=== PATIENT | female | born 1990 | race Caucasian/White ===

== ENCOUNTER 2017-04-17 19:20 | Emergency (ER) | payer OTHER ==
[~2017-04-17] VITALS: Ht 154.9 cm; Wt 70.0 kg
[~2017-04-17 19:20] MED LIST: EXPECTA PRENAT1 EACH PO; IBUPROFEN800 MG PO; NOHOMEMEDS; TRAMADOL HCL50 MG
[2017-04-17 20:10] LABS: HEMATOCRIT 40.1 % (36.0-46.0); MCH 31.8 PG (29.0-34.0); MCHC 33.7 G/DL (30.0-36.0); MCV 94.4 FL (83-99); PLATELET COUNT 404 K/uL (156-360); RBC DIS.WIDTH-CV 12.2 % (11.8-14.6); RBC DIS.WIDTH-SD 42.6 % (39-53); RED BLOOD COUNT 4.25 M/uL (3.80-5.20); WHITE BLOOD COUNT 13.6 K/uL (4.1-10.2)
[2017-04-17 20:22] LABS: CHLORIDE 103 mEq/L (99-109); POTASSIUM 3.3 mEq/L (3.7-5.4); SODIUM 138 mEq/L (136-147)
[2017-04-17 20:23] LABS: GLUCOSE 106 mg/dL (70-99)
[2017-04-17 20:25] LABS: ANION GAP 10 MEQ/L (2-14)
[2017-04-17 20:27] LABS: GFR ESTIMATE (CALCULATED) > 59 mL/min/
[2017-04-17 20:28] LABS: UREA NITROGEN (BUN) 5 mg/dL (9-23)
[2017-04-17 20:31] LABS: TROP-I INTERPRETATION NEGATIVE; TROPONIN-I < 0.01 ng/mL (0.0-0.30)
[2017-04-17] MEDS ORDERED: ZITHROMAX Z-PA250 MG PO (21:47)
[2017-04-17] MEDS ORDERED: PERCOCET 5/31 TABLET PO (21:47)
[2017-04-17 22:25] VITALS: BP 144/88
== END 2017-04-17 22:31 | disposition home or self-care (01) ==
LOC: EME 19:20
DX: S62.306A Unspecified fracture of fifth metacarpal bone, right hand, initial encounter for closed fracture (principal); J40 Bronchitis, not specified as acute or chronic; W22.09XA Striking against other stationary object, initial encounter
CPT/HCPCS: 71020; 73130; 80048; 84484; 85027; 99281; 99283; S0020

== ENCOUNTER 2017-10-11 18:32 | Emergency (ER) | payer OTHER ==
[~2017-10-11] VITALS: Ht 154.9 cm; Wt 68.2 kg
[~2017-10-11 18:32] MED LIST changes: +PERCOCET 5/31 TABLET PO; +ZITHROMAX Z-PA250 MG PO
[2017-10-11] MEDS ORDERED: TRAMADOL HCL50 MG PO (21:32)
[2017-10-11 21:46] VITALS: BP 138/86
== END 2017-10-11 21:48 | disposition home or self-care (01) ==
LOC: EME 18:32 → RME 18:32
DX: S93.402A Sprain of unspecified ligament of left ankle, initial encounter (principal); W10.9XXA Fall (on) (from) unspecified stairs and steps, initial encounter; F17.200 Nicotine dependence, unspecified, uncomplicated
CPT/HCPCS: 73610; 99281; 99284

== ENCOUNTER 2017-10-20 02:04 | Emergency (ER) | payer OTHER ==
[~2017-10-20] VITALS: Ht 154.9 cm; Wt 68.2 kg
[~2017-10-20 02:04] MED LIST changes: +TRAMADOL HCL50 MG PO
[2017-10-20 02:33] LABS: APPEARANCE CLEAR ((CLEAR)); BILIRUBIN NEGATIVE; BLOOD SMALL; COLOR STRAW ((YELLOW)); GLUCOSE (STRIP) NEGATIVE; KETONES NEGATIVE; LEUKOCYTES NEGATIVE; NITRITE NEGATIVE; PROTEIN (STRIP) NEGATIVE; SPECIFIC GRAVITY 1.002 (1.000-1.030); UROBILINOGEN 0.2 MG/DL (0.2-1.0)
[2017-10-20 02:35] LABS: HEMATOCRIT 44.1 % (36.0-46.0); HEMOGLOBIN 15.4 G/DL (11.9-15.5); MCH 32.3 PG (29.0-34.0); MCHC 34.9 G/DL (30.0-36.0); MCV 92.5 FL (83-99); PLATELET COUNT 362 K/uL (156-360); RBC DIS.WIDTH-CV 13.1 % (11.8-14.6); RBC DIS.WIDTH-SD 44.7 % (39-53); RED BLOOD COUNT 4.77 M/uL (3.80-5.20); WHITE BLOOD COUNT 10.2 K/uL (4.1-10.2)
[2017-10-20 02:36] LABS: BACTERIA NONE SEEN /HPF; EPITHELIAL CELLS NONE SEEN /HPF; MUCUS NONE SEEN /LPF; RED BLOOD CELLS 0-5 /HPF (0-5); UCUL ADDED? NO; WHITE BLOOD CELLS 0-5 /HPF (0-5)
[2017-10-20 02:44] LABS: ALBUMIN 4.7 g/dL (3.2-4.8); CHLORIDE 108 mEq/L (99-109); POTASSIUM 3.7 mEq/L (3.7-5.4); SODIUM 146 mEq/L (136-147)
[2017-10-20 02:47] LABS: GLUCOSE 104 mg/dL (70-99); TOTAL PROTEIN 8.4 g/dL (6.4-8.3)
[2017-10-20 02:48] LABS: TOTAL BILIRUBIN 0.3 mg/dL (0.0-1.0)
[2017-10-20 02:50] LABS: ALKALINE PHOSPHATASE 90 IU/L (3-129); CREATININE 0.8 mg/dL (0.6-1.3); GFR ESTIMATE (CALCULATED) > 59 mL/min/; SERUM ETHYL ALCOHOL 317 mg/dL
[2017-10-20 02:51] LABS: UREA NITROGEN (BUN) 9 mg/dL (9-23)
[2017-10-20 02:52] LABS: AST (GOT) 28 IU/L (2-34); DIRECT BILIRUBIN 0.1 mg/dL (0.0-0.3)
[2017-10-20 02:53] LABS: ALT (GPT) 32 IU/L (3-49)
[2017-10-20 02:54] LABS: LIPASE 40 U/L (1.0-51.0)
[2017-10-20 05:07] VITALS: BP 159/54
== END 2017-10-20 05:08 | disposition left against medical advice (07) ==
LOC: EME 02:04
PROVIDERS: Emergency Medicine
DX: S02.2XXA Fracture of nasal bones, initial encounter for closed fracture (principal); Y09 Assault by unspecified means; Y92.488 Other paved roadways as the place of occurrence of the external cause; F10.129 Alcohol abuse with intoxication, unspecified; Y90.8 Blood alcohol level of 240 mg/100 ml or more; Z53.21 Procedure and treatment not carried out due to patient leaving prior to being seen by health care provider; F32.9 Major depressive disorder, single episode, unspecified; F17.200 Nicotine dependence, unspecified, uncomplicated; Z87.19 Personal history of other diseases of the digestive system; Z91.030 Bee allergy status
CPT/HCPCS: 70450; 70486; 71046; 72125; 72170; 80048; 80076; 81003; 81025; 83690; 85027; G0480

== ENCOUNTER 2018-02-11 17:03 | Emergency (ER) | payer OTHER ==
[~2018-02-11] VITALS: Ht 154.9 cm; Wt 60.4 kg
[2018-02-11 17:57] LABS: BASOPHIL (%) 0.8 % (0-1); BASOPHIL COUNT 0.1 K/uL (0-0.1); EOSINOPHIL (%) 1.5 % (0-5); EOSINOPHIL COUNT 0.1 K/uL (0-0.3); IMMATURE GRANULOCYTE (%) 0.3 % (0.0-0.7); LYMPHOCYTE (%) 39.1 % (15-42); LYMPHOCYTE COUNT 3.1 K/uL (1.0-2.8); MCH 32.5 PG (29.0-34.0); MCHC 34.1 G/DL (30.0-36.0); MCV 95.2 FL (83-99); MONOCYTE (%) 8.8 % (3-12); MONOCYTE COUNT 0.7 K/uL (0-0.8); NEUTROPHIL (%) 49.5 % (45-76); NEUTROPHIL COUNT 3.9 K/uL (1.8-6.4); PLATELET COUNT 252 K/uL (156-360); RBC DIS.WIDTH-CV 13.2 % (11.8-14.6); RBC DIS.WIDTH-SD 46.7 % (39-53); RED BLOOD COUNT 4.62 M/uL (3.80-5.20); WHITE BLOOD COUNT 7.9 K/uL (4.1-10.2)
[2018-02-11 18:07] LABS: ALBUMIN 4.5 g/dL (3.2-4.8); CHLORIDE 110 mEq/L (99-109); POTASSIUM 4.1 mEq/L (3.7-5.4); SODIUM 149 mEq/L (136-147)
[2018-02-11 18:10] LABS: GLUCOSE 102 mg/dL (70-99)
[2018-02-11 18:12] LABS: TOTAL BILIRUBIN 0.2 mg/dL (0.0-1.0)
[2018-02-11 18:13] LABS: SERUM ETHYL ALCOHOL 344 mg/dL
[2018-02-11 18:14] LABS: ALKALINE PHOSPHATASE 135 IU/L (3-129); CREATININE 0.8 mg/dL (0.6-1.3); GFR ESTIMATE (CALCULATED) > 59 mL/min/
[2018-02-11 18:15] LABS: AST (GOT) 52 IU/L (2-34); UREA NITROGEN (BUN) 8 mg/dL (9-23)
[2018-02-11 18:17] LABS: ALT (GPT) 54 IU/L (3-49); SALICYLATE < 5.0 MG/DL (15-30)
[2018-02-11 18:18] LABS: ACETAMINOPHEN (TYLENOL) < 10 mcg/mL (10-30)
[2018-02-11 18:23] LABS: APPEARANCE CLEAR ((CLEAR)); BILIRUBIN NEGATIVE; BLOOD NEGATIVE; COLOR COLORLESS ((YELLOW)); GLUCOSE (STRIP) NEGATIVE; KETONES NEGATIVE; LEUKOCYTES NEGATIVE; NITRITE NEGATIVE; PROTEIN (STRIP) NEGATIVE; SPECIFIC GRAVITY 1.003 (1.000-1.030); UCUL ADDED? NO; UROBILINOGEN 0.2 MG/DL (0.2-1.0)
[2018-02-11 18:24] LABS: QUANTITATIVE HCG < 4.0 MIU/ML
[2018-02-11 18:42] LABS: AMPHETAMINE NEGATIVE (500 ng/mL); BARBITURATES NEGATIVE (200 ng/mL); BENZODIAZEPINES NEGATIVE (150 ng/mL); BUPRENORPHINE NEGATIVE (10 ng/mL); COCAINE PRESUMPTIVE POSITIVE (150 ng/mL); METHADONE NEGATIVE (200 ng/mL); METHAMPHETAMINE NEGATIVE (500 ng/mL); OPIATES (MORPHINE) NEGATIVE (100 ng/mL); OXYCODONE NEGATIVE (100 ng/mL); PHENCYCLIDINE NEGATIVE (25 ng/mL); PROPOXYPHENE NEGATIVE (300 ng/mL); THC CANNABINOIDS NEGATIVE (50 ng/mL); TRICYCLIC ANTIDEPRESSANTS NEGATIVE (300 ng/mL)
[2018-02-11 23:15] VITALS: BP 123/93
== END 2018-02-11 23:35 | disposition home or self-care (01) ==
LOC: EME 17:03
PROVIDERS: Emergency Medicine
DX: F32.9 Major depressive disorder, single episode, unspecified (principal); F10.129 Alcohol abuse with intoxication, unspecified; Y90.8 Blood alcohol level of 240 mg/100 ml or more; R10.9 Unspecified abdominal pain; Y09 Assault by unspecified means
CPT/HCPCS: 70450; 71046; 74176; 80053; 81003; 84702; 84999; 85025; 93005; 99281; 99285; G0480